=== PATIENT | male | born 1980 | race Two or more races ===

== ENCOUNTER 2017-08-09 22:35 | Emergency (ER) | payer SELFPAY ==
[~2017-08-09] VITALS: Ht 177.8 cm; Wt 136.1 kg
[2017-08-09] MEDS ORDERED: METFORMIN (23:10)
[2017-08-09] MEDS ORDERED: LANTUS (23:10)
--- NOTE | 2017-08-09 23:10 | NUR ---
Pt ambulated to room with steady gait, changed into gown and placed on monitor. Pt sts he had a mech fall at approx 1800 at which he struck his face on the ground. No swelling, no abrasion and no bruising noted. Pt sts he started vomiting approx between 2055-6006 and has been since. Pt also c/o R. elbow pain, no swelling, no bruising and no deformity noted, Pt also c/o pain and swelling to right middle finger. Pt seen by Dr. Padilla. IV established. Pt medicated for vomiting, awaiting further orders.
[2017-08-09] MEDS ORDERED: ONDANSETRON 4 MG/2 ML VIAL IV ONE (23:15)
[2017-08-09] MEDS ORDERED: ONDANSETRON IV *ER 4 MG/2 ML VIAL IV ONE (23:15)
[2017-08-09] MEDS ORDERED: IV NORMAL SALINE 1000 ML BAG IV ONE ×2 (23:15→23:45)
[2017-08-09] MEDS ORDERED: HYDROMORPHONE 1 MG/1 ML DISP.SYRIN IV ONE (23:15)
[2017-08-09] MEDS ORDERED: ONDANSETRON 4 MG/2 ML VIAL ONE ×2 (23:18→23:32)
[2017-08-09 23:19] LABS: BASOPHILS # (AUTO) 0.1 K/uL (0.0-8.0); EOSINOPHILS # (AUTO) 0.3 K/uL (0.0-0.7); EOSINOPHILS % (AUTO) 2.8 % (0.0-7.0); HEMATOCRIT 45.2 % (40-50); HEMOGLOBIN 15.1 G/DL (14.0-18.0); LYMPHOCYTES # (AUTO) 3.1 K/UL (0.8-4.8); LYMPHOCYTES % (AUTO) 26.7 % (20.5-51.5); MEAN CORPUSCULAR HEMOGLOBIN 27.8 UUG (27.0-31.0); MEAN CORPUSCULAR HGB CONC 34 g/dL (32.0-37.0); MEAN CORPUSCULAR VOLUME 82.8 FL (82.0-92.0); MONOCYTES # (AUTO) 0.8 K/UL (0.1-1.30); MONOCYTES % (AUTO) 7.1 % (0.0-11.0); NEUTROPHILS # (AUTO) 7.2 K/UL (1.8-8.9); NEUTROPHILS % (AUTO) 62.4 % (38.5-71.5); PLATELET COUNT (AUTO) 246 K/UL (150-450); RED BLOOD CELL COUNT(AUTO) 5.46 MIL/UL (4.7-6.1); WHITE BLOOD COUNT (AUTO) 11.5 K/UL (4.0-11.2)
--- NOTE | 2017-08-09 23:23 | NUR ---
Pt medicated for pain and further vomiting, will monitor for effects of medication. Fluid bolus infusing freely to gravity.
[2017-08-09] MEDS ORDERED: HYDROMORPHONE 2 MG/1 ML DISP.SYRIN ONE (23:32)
[2017-08-09 23:34] LABS: ALANINE AMINOTRANSFERASE 24 U/L (16-63); ALKALINE PHOSPHATASE 102 U/L (50-136); ASPARTATE AMINOTRANSFERASE 8 U/L (15-37); BILIRUBIN,DIRECT < 0.1 mg/dL (0.0-0.2); BILIRUBIN,TOTAL 0.2 mg/dL (0.2-1.0); CARBON DIOXIDE 26 mmol/L (21-32); CHLORIDE 102 mmol/L (98-107); CREATININE 1.1 mg/dL (0.6-1.3); LIPASE 173 U/L (73-393); POTASSIUM 3.9 mmol/L (3.5-5.1); TOTAL PROTEIN, SERUM 7.6 g/dL (6.4-8.2); UREA NITROGEN, BLOOD 12 mg/dL (7-18)
[2017-08-09 23:35] LABS: GLUCOSE 405 mg/dL (74-106)
--- NOTE | 2017-08-09 23:35 | NUR ---
Pt to CT via [facility]
[2017-08-09] MEDS ORDERED: INSULIN REGULAR, HUMAN 1,000 UNITS/10 ML VIAL IV ONE (23:45)
--- NOTE | 2017-08-09 23:58 | NUR ---
Pt returned from [facility] via [facility]
--- NOTE | 2017-08-10 00:19 | NUR ---
Pt medicated for elevated blood sugar, will monitor for effects of medication. Pt conts to c/o severe facial pain and requesting more pain medication. Dr. Padilla notified, awaiting further orders.
[2017-08-10] MEDS ORDERED: INSULIN REGULAR, HUMAN 300 UNIT/3 ML VIAL ONE (00:25)
[2017-08-10] MEDS ORDERED: ONDANSETRON IV *ER 4 MG/2 ML VIAL IV ONE (00:30)
[2017-08-10] MEDS ORDERED: HYDROMORPHONE 1 MG/1 ML DISP.SYRIN IV ONE (00:30)
--- NOTE | 2017-08-10 01:07 | NUR ---
Pt medicated for cont. pain, will monitor for effects of medication. Pt repositioned for comfort.
[2017-08-10] MEDS ORDERED: HYDROMORPHONE 2 MG/1 ML DISP.SYRIN ONE (01:14)
[2017-08-10] MEDS ORDERED: ONDANSETRON 4 MG/2 ML VIAL ONE (01:14)
--- NOTE | 2017-08-10 01:45 | NUR ---
Pt sts pain improved with medication. Blood sugar has improved with previous medication. Finger splint applied to right middle finger per pt request. Pos CMS s/p application. Pt requested an arm sling. Dr. Padilla notified and sling applied. Pos CMS s/p application. Pt stable for discharge per Dr. Padilla. IV dc'd, catheter intact. Drsg applied. No problems noted to site. Pt given ACI. Pt verbalized understanding of dc instructions. Pt ambulated out of ER with steady gait and ride home.
[2017-08-10 03:11] VITALS: BP 137/88
== END 2017-08-10 01:45 | disposition home or self-care (01) ==
LOC: ER 22:40
DX: S06.0X0A Concussion without loss of consciousness, initial encounter (principal); E11.65 Type 2 diabetes mellitus with hyperglycemia; Z79.4 Long term (current) use of insulin; Z88.6 Allergy status to analgesic agent; X58.XXXA Exposure to other specified factors, initial encounter; Y93.89 Activity, other specified; Y92.9 Unspecified place or not applicable; Y99.9 Unspecified external cause status
CPT/HCPCS: 36415; 70450; 70486; 73080; 73130; 80048; 80076; 82962; 83690; 85025; 96361; 96374; 96375; 99285; A4663; J1170 ×2; J1815; J2405 ×3; J7030